=== PATIENT | female | born 1995 | race Caucasian/White ===

== ENCOUNTER 2024-10-26 10:43 | Emergency (ER) | payer OTHER ==
[~2024-10-26] VITALS: Ht 149.9 cm; Wt 73.9 kg
[2024-10-26] MEDS: IV NS 0.9% 1,000 ML BAG IV ONE (11:23)
[2024-10-26 11:31] LABS: PLATELET COUNT (AUTO) 263 K/uL (150-450); RED BLOOD CELL COUNT(AUTO) 5.04 MIL/uL (4.0-5.2); RED CELL DISTRIBUTION WIDTH 13.2 % (11.5-15.0); WHITE BLOOD COUNT (AUTO) 6.8 K/uL (4.3-11.0)
[2024-10-26 11:32] LABS: APPEARANCE,URINE CLEAR (CLEAR); BLOOD, URINE NEGATIVE Ery/uL (NEGATIVE); LEUKOCYTE ESTERASE ,URINE NEGATIVE (NEGATIVE); NITRITE, URINE NEGATIVE (NEGATIVE); UGLUCOSE NEGATIVE (NEGATIVE)
[2024-10-26 11:41] LABS: PREGNANCY TEST URINE QUAL NEGATIVE (NEGATIVE)
[2024-10-26 12:00] LABS: CALCIUM, SERUM 9.1 mg/dL (8.5-10.1); CREATININE 0.8 mg/dL (0.6-1.3); SODIUM SERUM 138.0 mmol/L (136-145); UREA NITROGEN, BLOOD 15.0 mg/dL (7-18)
[2024-10-26 12:25] LABS: TOTAL PROTEIN, SERUM 7.9 g/dL (6.4-8.2)
[2024-10-26 12:35] LABS: ASPARTATE AMINOTRANSFERASE 24.0 U/L (15-37)
[2024-10-26 14:04] VITALS: BP 145/79; TEMP 98.4; O2SAT 99
== END 2024-10-26 14:04 | disposition home or self-care (01) ==
LOC: ER 10:43
DX: R10.9 Unspecified abdominal pain (principal); R19.7 Diarrhea, unspecified; K58.0 Irritable bowel syndrome with diarrhea; R10.2 Pelvic and perineal pain
CPT/HCPCS: 99284; 74176; 96360; 85025; 80048; 87086; 83690; 80076; 81003; 36415; 84702; 84703 ×2; J7030